=== PATIENT | female | born 1960 | race Caucasian/White ===

== ENCOUNTER 2018-07-30 21:21 | Emergency (ER) | payer MEDICAID ==
[2018-07-30 22:34] LABS: BASOPHIL % 0.2 % (0-2); PLATELET COUNT 261 x10^3mcL (130-400); RED CELL DISTRIBUTION WIDTH 12.5 % (11.5-14.5)
[2018-07-30 23:06] LABS: CALCIUM 8.7 mg/dL (8.5-10.1); CARBON DIOXIDE 27.5 mmol/L (21-32); CHLORIDE SERUM 98 mmol/L (98-107); CREATININE SERUM 0.9 mg/dL (0.6-1.0); GFR1 > 60 mL/min; GLUCOSE SERUM 420 mg/dL (74-106); POTASSIUM SERUM 5.3 mmol/L (3.5-5.1); SODIUM SERUM 131 mmol/L (136-145)
[2018-07-30 23:11] LABS: ALBUMIN 2.9 g/dL (3.4-5.0); ALKALINE PHOSPHATASE 350 U/L (46-116); ALT/SGPT 50 U/L (14-59); AST/SGOT 31 U/L (15-37); BILIRUBIN TOTAL 0.6 mg/dL (0.20-1.00); TOTAL PROTEIN, SERUM 7.9 g/dL (6.4-8.2)
[2018-07-30 23:58] VITALS: BP 139/94
== END 2018-07-30 23:59 | disposition home or self-care (01) ==
LOC: ED 21:21
PROVIDERS: Emergency Medicine
DX: L02.212 Cutaneous abscess of back [any part, except buttock and flank] (principal); E11.65 Type 2 diabetes mellitus with hyperglycemia; E87.5 Hyperkalemia; D72.829 Elevated white blood cell count, unspecified; Z98.890 Other specified postprocedural states
CPT/HCPCS: 82962; J0690; J1885; J7030

== ENCOUNTER 2018-08-03 00:08 | Emergency (ER) | payer MEDICAID ==
[~2018-08-03] VITALS: Ht 147.3 cm; Wt 55.3 kg
[2018-08-03 00:17] VITALS: Ht 147.3 cm; Wt 55.3 kg
[2018-08-03 00:59] VITALS: BP 128/68
== END 2018-08-03 00:59 | disposition home or self-care (01) ==
LOC: ED 00:08
DX: L02.212 Cutaneous abscess of back [any part, except buttock and flank] (principal); E11.9 Type 2 diabetes mellitus without complications

== ENCOUNTER 2018-08-04 23:23 | Emergency (ER) | payer MEDICAID ==
[~2018-08-04] VITALS: Ht 149.9 cm; Wt 55.3 kg
[2018-08-04 23:37] VITALS: Ht 149.9 cm; Wt 55.3 kg
[2018-08-05 02:02] VITALS: BP 128/69
== END 2018-08-05 02:02 | disposition home or self-care (01) ==
LOC: ED 23:23
DX: L02.212 Cutaneous abscess of back [any part, except buttock and flank] (principal); E11.9 Type 2 diabetes mellitus without complications
CPT/HCPCS: 90715

== ENCOUNTER 2018-08-05 18:36 | Emergency (ER) | payer MEDICAID ==
[~2018-08-05] VITALS: Ht 147.3 cm; Wt 54.4 kg
[2018-08-05 19:29] VITALS: Ht 147.3 cm; Wt 54.4 kg
[2018-08-05 22:18] VITALS: BP 111/84
== END 2018-08-05 22:18 | disposition home or self-care (01) ==
LOC: ED 18:36
DX: L02.212 Cutaneous abscess of back [any part, except buttock and flank] (principal); E11.9 Type 2 diabetes mellitus without complications

== ENCOUNTER 2018-08-07 22:33 | Emergency (ER) | payer MEDICAID ==
[~2018-08-07] VITALS: Ht 147.3 cm; Wt 54.9 kg
[2018-08-07 22:58] VITALS: Ht 147.3 cm; Wt 54.9 kg
[2018-08-07 23:44] VITALS: BP 112/69
== END 2018-08-07 23:44 | disposition home or self-care (01) ==
LOC: ED 22:33
DX: L02.212 Cutaneous abscess of back [any part, except buttock and flank] (principal); E11.9 Type 2 diabetes mellitus without complications; Z98.890 Other specified postprocedural states

== ENCOUNTER 2018-08-09 22:42 | Emergency (ER) | payer MEDICAID ==
[~2018-08-09] VITALS: Ht 147.3 cm; Wt 55.3 kg
[2018-08-09 22:50] VITALS: Ht 147.3 cm; Wt 55.3 kg
[2018-08-10 01:08] VITALS: BP 119/76
== END 2018-08-10 01:08 | disposition home or self-care (01) ==
LOC: ED 22:42
DX: L02.212 Cutaneous abscess of back [any part, except buttock and flank] (principal); E11.9 Type 2 diabetes mellitus without complications; Z98.890 Other specified postprocedural states